=== PATIENT | female | born 1985 | race African-American/Black ===

== ENCOUNTER 2019-09-27 01:44 | Emergency (ER) | payer OTHER ==
[~2019-09-27] VITALS: Ht 165.1 cm; Wt 93.0 kg
[2019-09-27] MEDS ORDERED: ASPIRIN 81MG TABLET PO ONE (03:00)
[2019-09-27 03:12] LABS: CHLORIDE 106 mEq/L (98-107)
[2019-09-27 03:29] LABS: BASOPHILS % 0.7 % (0.0-2.0); EOSINOPHILS % 0.6 % (0.0-5.0); HEMATOCRIT. 40.6 % (36.0-48.0); LYMPHOCYTES % 35.1 % (20.0-50.0); MEAN CORPUSCULAR HEMOGLOBIN 28.7 pg (28.0-32.0); MEAN CORPUSCULAR VOLUME 83.4 fL (81.0-99.0); MEAN PLATELET VOLUME 8.9 fl (7.4-10.4); NEUTROPHILS % 54.6 % (40.0-76.0); PLATELET 278 x1000/uL (130-400); RED BLOOD CELL COUNT 4.87 mill/uL (4.2-5.4); RED CELL DISTRIBUTION WIDTH 13.5 % (11.6-14.6)
[2019-09-27 03:38] LABS: HCG SCREEN NEGATIVE
[2019-09-27 05:46] VITALS: BP 120/72
== END 2019-09-27 05:47 | disposition home or self-care (01) ==
LOC: ER 02:33
DX: R07.89 Other chest pain (principal); R06.02 Shortness of breath; Z90.49 Acquired absence of other specified parts of digestive tract
CPT/HCPCS: 36415; 71045; 80053; 81025; 83690; 83880; 84484; 84703; 85025; 93005; 99285; Z7610

== ENCOUNTER 2020-04-14 03:52 | Emergency (ER) | payer OTHER ==
[~2020-04-14] VITALS: Ht 165.1 cm; Wt 91.0 kg
[2020-04-14] MEDS ORDERED: ONDANSETRON HCL 4MG/2ML INJ IV STA (06:35)
[2020-04-14] MEDS ORDERED: MORPHINE SULFATE 4 MG/ML CPJ (NOT FOR IM USE) IV STA (06:35)
[2020-04-14 06:59] LABS: BASOPHILS % 0.7 % (0.0-2.0); EOSINOPHILS % 0.8 % (0.0-5.0); HEMATOCRIT. 38.5 % (36.0-48.0); HEMOGLOBIN. 12.8 g/dL (12.0-16.0); LYMPHOCYTES % 31.8 % (20.0-50.0); MEAN CORPUSCULAR HEMOGLOBIN 28.4 pg (28.0-32.0); MEAN CORPUSCULAR VOLUME 85.1 fL (81.0-99.0); MEAN PLATELET VOLUME 9.1 fl (7.4-10.4); MONOCYTES % 7.4 % (2.0-8.0); NEUTROPHILS % 59.3 % (40.0-76.0); PLATELET 297 x1000/uL (130-400); RED BLOOD CELL COUNT 4.53 mill/uL (4.2-5.4); RED CELL DISTRIBUTION WIDTH 13.2 % (11.6-14.6)
[2020-04-14 07:04] LABS: CLARITY URINE CLOUDY (CLEAR); COLOR URINE YELLOW (YELLOW); KETONES URINE NEGATIVE (NEGATIVE); LEUKOCYTE ESTERASE URINE 2+ (NEGATIVE); NITRITE URINE NEGATIVE (NEGATIVE); OCCULT BLOOD URINE 2+ (NEGATIVE); PH URINE 5.5 (4.5-8.0); PROTEIN URINE NEGATIVE (NEGATIVE); SPECIFIC GRAVITY URINE 1.026 (1.005-1.030)
[2020-04-14 07:06] LABS: CHLORIDE 105 mEq/L (98-107)
[2020-04-14 07:09] LABS: INR 1.1; PROTHROMBIN TIME 11.3 sec (9.6-11.0)
[2020-04-14 07:16] LABS: HCG SCREEN NEGATIVE
[2020-04-14 08:00] VITALS: BP 114/76
== END 2020-04-14 08:10 | disposition home or self-care (01) ==
LOC: ER 03:52
DX: R10.13 Epigastric pain (principal); N39.0 Urinary tract infection, site not specified; Z98.890 Other specified postprocedural states
CPT/HCPCS: 36415; 80053; 81003; 83690; 84703; 85025; 85610; 93005; 96374; 96375; 99284; J2270; J2405

== ENCOUNTER 2020-05-20 06:38 | Emergency (ER) | payer OTHER ==
[~2020-05-20] VITALS: Ht 165.1 cm; Wt 92.0 kg
[2020-05-20] MEDS ORDERED: ONDANSETRON HCL 4MG/2ML INJ IV STA (07:17)
[2020-05-20] MEDS ORDERED: MAGNESIUM CITRATE 300ML SOLUTION PO ONE (07:30)
[2020-05-20] MEDS ORDERED: SODIUM CHLORIDE 0.9% 1,000 ML IV ONE (07:30)
[2020-05-20] MEDS ORDERED: LACTULOSE 20G/30ML UDC PO ONE (07:30)
[2020-05-20 08:14] LABS: BASOPHILS % 0.9 % (0.0-2.0); EOSINOPHILS % 0.9 % (0.0-5.0); HEMATOCRIT. 37.5 % (36.0-48.0); HEMOGLOBIN. 12.6 g/dL (12.0-16.0); LYMPHOCYTES % 33.2 % (20.0-50.0); MEAN CORPUSCULAR HEMOGLOBIN 28.2 pg (28.0-32.0); MEAN CORPUSCULAR VOLUME 83.7 fL (81.0-99.0); MONOCYTES % 9.2 % (2.0-8.0); NEUTROPHILS % 55.8 % (40.0-76.0); PLATELET 272 x1000/uL (130-400); RED BLOOD CELL COUNT 4.48 mill/uL (4.2-5.4); RED CELL DISTRIBUTION WIDTH 13.4 % (11.6-14.6)
[2020-05-20 08:20] LABS: CLARITY URINE CLEAR (CLEAR); COLOR URINE YELLOW (YELLOW); KETONES URINE NEGATIVE (NEGATIVE); LEUKOCYTE ESTERASE URINE NEGATIVE (NEGATIVE); NITRITE URINE POSITIVE (NEGATIVE); OCCULT BLOOD URINE NEGATIVE (NEGATIVE); PROTEIN URINE NEGATIVE (NEGATIVE); SPECIFIC GRAVITY URINE 1.017 (1.005-1.030); UROBILINOGEN URINE 0.2 E.U./dL (0.2-1.0)
[2020-05-20 08:23] LABS: CHLORIDE 107 mEq/L (98-107); PROTHROMBIN TIME 10.9 sec (9.6-11.0)
[2020-05-20 09:00] VITALS: BP 118/79
== END 2020-05-20 10:25 | disposition home or self-care (01) ==
LOC: ER 06:38
DX: R10.13 Epigastric pain (principal); K59.00 Constipation, unspecified; Z98.890 Other specified postprocedural states
CPT/HCPCS: 36415; 71045; 74018; 80053; 81003; 81025; 83690; 85025; 85610; 93005; 96361; 96374; 99285; J2405; J7030; Z7610